=== PATIENT | male | born 2000 | race Caucasian/White ===

== ENCOUNTER 2019-06-02 17:34 | Emergency (ER) | payer BC ==
[~2019-06-02 17:34] MED LIST: Iopamidol-370 76% 500 ML 1 ML ONE
[2019-06-02 19:00] LABS: #Basophils 0.1 thou/uL (0.0-0.2); #Lymphocytes 3.3 thou/uL (1.20-3.40); #Monocytes 0.7 thou/uL (0.11-0.59); #Neutrophils 4.6 thou/uL (1.40-6.50); %Basophils 0.9 % (0.0-1.0); %Eosinophils 0.5 % (0.0-10.0); %Lymphocytes 38.1 % (28.0-48.0); %Monocytes 7.9 % (0.0-4.0); %Neutrophils 52.7 % (31.0-61.0); Hemoglobin 16.3 g/dL (14.0-18.0); Mean Corpuscular HGB CONC 34.6 g/dL (32.0-36.0); Mean Corpuscular Hemoglobin 30.7 pg (25.0-35.0); Mean Corpuscular Volume 88.9 fL (78.0-98.0); Mean Platelet Volume 7.5 fL (7.4-10.4); Platelet Count 246 thou/uL (130-400); RBC Distribution Width 11.7 % (11.5-14.5); Red Blood Cell (RBC) Count 5.29 mill/uL (4.00-5.20); White Blood Cell (WBC) Count 8.8 thou/uL (4.8-10.8)
[2019-06-02 19:31] LABS: ALT (SGPT) 16 U/L (8-55); AST (SGOT) 15 U/L (5-34); Albumin 4.9 g/dL (3.5-5.0); Alkaline Phosphatase 69 U/L (50-130); Anion Gap 16 mmol/L (10-20); BUN (Urea Nitrogen) 17 mg/dL (8.9-20.6); Bilirubin, Total 0.5 mg/dL (0.2-1.2); Calc. Creatinine Clearance 0 mL/min (70-130); Carbon Dioxide 24 mmol/L (22-29); Chloride 103 mmol/L (98-107); Estimated GFR-MDRD 89; Globulin 2.5 g/dL (2.4-3.5); Glucose 91 mg/dL (70-105); Protein, Total 7.4 g/dL (6.0-8.3); Sodium 139 mmol/L (136-145)
[2019-06-02] MEDS ORDERED: Morphine 4 MG/ML VIAL ONE (20:02)
[2019-06-02] MEDS ORDERED: Ondansetron PF 4 MG/2 ML Vial ONE (20:03)
--- NOTE | 2019-06-02 20:42 | CT ---
CT neck soft tissues with contrast: DATE: 06/02/2019 HISTORY: 19-year-old male with neck pain. Penetrating trauma. FINDINGS: Embedded within the left strap muscle, and abutting the left thyroid cartilage, there is a 7 x 3 x 5 mm metallic foreign body. There is a tiny amount of subcutaneous emphysema in the left strap muscle extending inferiorly along a vertical tract that is at least 5 cm in length. The trachea, thyroid gland, larynx, and cervical spine, are normal. The retropharyngeal, posterior ce rvical, perivertebral, parapharyngeal, carotid, parotid, submandibular, client support consultant, pharyngeal mucosal, and sublingual, spaces, are normal. No cervical lymphadenopathy. Incidental finding of metallic densities within superficial vein in the right neck represents pooling of injected contrast material, and should not be mistaken for additional foreign bodies. IMPRESSION: 1. Metallic foreign body in the left strap muscle just outside of the laryngeal skeleton. 2. Long thin vertical tract of gas within the left strap muscle extending inferiorly from that metall ic foreign body.
[2019-06-02] MEDS ORDERED: HYDROcodone/Acetaminophen 10/325 mg Tablet ONE (21:38)
== END 2019-06-02 22:15 | disposition home or self-care (01) ==
LOC: ERS 17:34
DX: S10.95XA Superficial foreign body of unspecified part of neck, initial encounter (principal); W26.9XXA Contact with unspecified sharp object(s), initial encounter
CPT/HCPCS: 70491; 80053; 85025; 96374; 96375; J2270; J2405; Q9967

== ENCOUNTER 2019-06-09 08:12 | Day surgery (SDC) | payer BC ==
[2019-06-08 08:49] VITALS: BMI 30.8
[2019-06-09] MEDS ORDERED: Fentanyl 100 MCG/2 ML VIAL ONE ×3 (08:53→12:41)
[2019-06-09] MEDS ORDERED: Midazolam HCl 2 mg/2 ml Vial ONE ×2 (08:53→09:45)
[2019-06-09] MEDS ORDERED: HYDROmorphone 0.5 MG/0.5 ML SYRINGE ONE (08:54)
[2019-06-09] MEDS ORDERED: Lidocaine 2% Jelly 5 ML TUBE ONE (08:54)
[2019-06-09] MEDS ORDERED: PROPOFOL 200 MG/20 ML VIAL ONE (09:40)
[2019-06-09] MEDS ORDERED: Rocuronium Bromide 10 MG/ML (10ML VIAL) ONE (09:40)
[2019-06-09] MEDS ORDERED: Ondansetron PF 4 MG/2 ML Vial ONE (09:40)
[2019-06-09] MEDS ORDERED: Lidocaine 1% PF 5 ML VIAL ONE (09:40)
[2019-06-09] MEDS ORDERED: Dexamethasone 20 MG/5 ML VIAL ONE (09:40)
[2019-06-09] MEDS ORDERED: Glycopyrrolate 0.2 MG/ML 5 ML SYRINGE ONE (09:40)
[2019-06-09] MEDS ORDERED: Bacitracin Zinc Ointment 30 gm TUBE ONE (09:43)
[2019-06-09] MEDS ORDERED: Lidocaine 1% w/Epinephrine 1:100K 20 ML VIAL ONE (09:43)
[2019-06-09] MEDS ORDERED: Sodium Chloride 0.9% 10 ML ONE (10:50)
[2019-06-09] MEDS ORDERED: Morphine 4 MG/ML VIAL ONE (12:10)
--- NOTE | 2019-06-10 14:57 | OP ---
DATE OF PROCEDURE: 06/09/2019 PREOPERATIVE DIAGNOSIS: Left neck foreign body with free-air around the foreign body. POSTOPERATIVE DIAGNOSIS: Left neck foreign body with free-air around the foreign body. PROCEDURE: Neck exploration and removal of foreign body, I and D and washout. PERMIT: The procedure, benefits, risks including those of bleeding, infection, injury to anesthesia, allergic reaction, damage to surrounding tissues or scarring necessitating revision repair and alternatives were reviewed with the patient and family who expressed understanding of the information. Consent form was signed and witnessed and a paper copy of the consent forms available for reviewing in the patient chart. INDICATION: This is a male patient who previously has a metal foreign body that was a projectile that imbedded in the neck to the left of the thyroid cartilage around the larynx with free-air and swelling and pain. Patient is brought to the operating room now for operative repair. ASSISTANTS: None. FINDINGS: Left mild inflammation as well as some inflammatory fluid around foreign body. A small foreign body roughly 0.5 cm x 0.5 cm next to the left thyroid cartilage. DESCRIPTION OF OPERATION: The patient was brought to the operating room, laid supine on the operating room table. General endotracheal anesthesia was administered. The bed was pulled down inferiorly and the wound where the projectile had entered the neck on the left was probed and no purulence was expressed. A natural neck crease was seen superior to the small 3 mm punctate puncture from the previous projectile foreign body, approximately 3 cm incision was made in the neck crease following the natural skin righted with a 15 blade scalpel. Next, the subcutaneous tissue was dissected with Bovie cautery down to the platysma which was divided and elevated superiorly and inferiorly. Next, the strap muscles were identified in the midline over the airway and the strap muscles were bilaterally. The sternohyoid was identified first and from the underlying sternothyroid. At this time, was used to retract the strap muscles and Weitlaner was placed to retract the skin upon and continued dissection was performed bluntly with a tonsil and DeBakey forceps until inflammatory fluid was found and the tissue around the foreign body. A small metallic foreign body was removed and placed on the Schaffer stand and in a specimen cup. After the foreign body was removed, the neck was explored around the area and no other foreign bodies were seen or other small areas. Next, the wound bed and area around the foreign body was irrigated with bacitracin infused saline. Copious irrigation was performed and the area was washed down. Next, the strap muscles were reapproximated with a 4-0 Vicryl stitch and then deep sutures were placed with 4-0 Vicryl and then a superficial running subcutaneous suture of 4-0 Prolene was used to close the skin, bacitracin, and a small simple wound dressing of Telfa over the bacitracin with tape was placed over the wound. The Valsalva was performed and there was no bleeding seen. The patient was turned back to Anesthesia for emergence and there were no complications. Job ID: [id number]
== END 2019-06-09 13:55 | disposition home or self-care (01) ==
LOC: SDC 08:12
PROVIDERS: ATTEND Student in an Organized Health Care Education/Training Program
PROC: 0KC30ZZ Extirpation of Matter from Left Neck Muscle, Open Approach (ICD-10-PCS; principal; 2019-06-09)
DX: S11.84XA Puncture wound with foreign body of other specified part of neck, initial encounter (principal); J34.2 Deviated nasal septum; Z79.2 Long term (current) use of antibiotics; Z79.899 Other long term (current) drug therapy; W45.8XXA Other foreign body or object entering through skin, initial encounter
CPT/HCPCS: J1100; J1170; J2001; J2250; J2270; J2405; J2704; J3010; J3490

== ENCOUNTER 2019-06-09 15:27 | Emergency (ER) | payer BC | END 2019-06-09 16:17 | disposition home or self-care (01) | LOC: ERS 15:27 | DX: R21 Rash and other nonspecific skin eruption (principal) | CPT/HCPCS: 99282 ==

== ENCOUNTER 2023-11-29 09:57 | Inpatient (IN) | payer SELFPAY ==
[2023-11-29 16:50] VITALS: BMI 31.6
[2023-11-29] MEDS ORDERED: Ondansetron PF 4 MG/2 ML Vial IVP PRN (17:08)
[2023-11-29] MEDS ORDERED: Senokot S 8.6-50 MG TAB PO PRN (17:14)
[2023-11-29] MEDS: Enoxaparin 40 MG (0.4 mL) SYRINGE SC SCH (20:12)
[2023-11-29] MEDS: Famotidine 20 MG TAB PO SCH (20:12)
[2023-11-29] MEDS: levETIRAcetam 500 MG TAB PO SCH (20:12)
[2023-11-29] MEDS: Acetaminophen 325 MG TAB PO PRN (23:16)
[2023-11-30 04:08] LABS: #Basophils 0.03 10x3/uL (0.0-0.2); %Basophils 0.4 % (0.0-1.0); %Eosinophils 1.5 % (0.0-10.0); %Monocytes 7.9 % (0.0-10.0); Hematocrit 41.9 % (42.0-52.0); Hemoglobin 14.1 g/dL (14.0-18.0); Mean Corpuscular HGB CONC 33.7 g/dL (32.0-36.0); Mean Corpuscular Hemoglobin 29.6 pg (27.0-31.0); Mean Platelet Volume 9.7 fL (7.4-10.4); Platelet Count 207 10x3/uL (130-400); RBC Distribution Width 12.1 % (11.5-14.5); Red Blood Cell (RBC) Count 4.76 mill/uL (4.70-6.10)
[2023-11-30 04:34] LABS: Anion Gap 12 mmol/L (10-20); BUN (Urea Nitrogen) 13 mg/dL (8.9-20.6); Calc. Creatinine Clearance 158 mL/min (70-130); Calcium 8.9 mg/dL (7.8-10.44); Carbon Dioxide 23 mmol/L (22-29); Chloride 108 mmol/L (98-107); Estimated GFR 105; Glucose 91 mg/dL (70-105); Sodium 139 mmol/L (136-145)
[2023-11-30] MEDS: Pantoprazole DR 40 MG TAB PO SCH (09:19)
[2023-11-30] MEDS: Fioricet 325/50/40 mg Tablet PO SCH (14:33)
[2023-11-30] MEDS: SUMAtriptan Succinate 50 MG TAB PO PRN (19:38)
[2023-12-01 04:46] LABS: #Basophils 0.03 10x3/uL (0.0-0.2); %Basophils 0.3 % (0.0-1.0); %Eosinophils 1.9 % (0.0-10.0); %Lymphocytes 40.4 % (21.0-51.0); %Monocytes 9.1 % (0.0-10.0); Hematocrit 43.7 % (42.0-52.0); Mean Corpuscular HGB CONC 34.3 g/dL (32.0-36.0); Mean Corpuscular Hemoglobin 30.2 pg (27.0-31.0); Mean Corpuscular Volume 88.1 fL (78.0-98.0); Mean Platelet Volume 9.8 fL (7.4-10.4); Platelet Count 228 10x3/uL (130-400); RBC Distribution Width 12.1 % (11.5-14.5); Red Blood Cell (RBC) Count 4.96 mill/uL (4.70-6.10)
[2023-12-01 06:00] LABS: Chloride 107 mmol/L (98-107); Potassium 3.8 mmol/L (3.5-5.1); Sodium 142 mmol/L (136-145)
[2023-12-01 06:01] LABS: Calcium 9.4 mg/dL (7.8-10.44)
[2023-12-01 06:02] LABS: Glucose 87 mg/dL (70-105)
[2023-12-01 06:03] LABS: Anion Gap 14 mmol/L (10-20); Carbon Dioxide 25 mmol/L (22-29)
[2023-12-01 06:05] LABS: Calc. Creatinine Clearance 155 mL/min (70-130); Estimated GFR 103
[2023-12-01 06:06] LABS: BUN (Urea Nitrogen) 15 mg/dL (8.9-20.6)
[2023-12-01] MEDS: Rosuvastatin 10 MG TAB PO SCH (20:31)
[2023-12-02 04:58] LABS: Anion Gap 13 mmol/L (10-20); BUN (Urea Nitrogen) 17 mg/dL (8.9-20.6); Calcium 9.4 mg/dL (7.8-10.44); Carbon Dioxide 25 mmol/L (22-29); Chloride 107 mmol/L (98-107); Glucose 144 mg/dL (70-105); Potassium 3.4 mmol/L (3.5-5.1); Sodium 142 mmol/L (136-145)
[2023-12-02 05:07] LABS: Calc. Creatinine Clearance 158 mL/min (70-130); Estimated GFR 105
[2023-12-02] MEDS: Ketorolac Tromethamine 30 MG (1 mL) VIAL IVP SCH ×2 (12:16→17:35)
[2023-12-02] MEDS: Prochlorperazine Edisylate 10 MG in Sodium Chloride 0.9% 50 ML IVPB SCH (12:19)
[2023-12-02] MEDS: Fioricet 325/50/40 mg Tablet PO SCH ×2 (13:57→17:36)
[2023-12-02] MEDS: Potassium Chloride 20 MEQ TAB PO SCH (17:36)
[2023-12-03 11:46] VITALS: BP 135/81; TEMP 98.1
== END 2023-12-03 18:18 | disposition home or self-care (01) | DRG 102 ==
LOC: 2SE 09:57
PROVIDERS: ADMIT Family Medicine; ATTEND Emergency Medicine
PROC: 4A00X4Z Measurement of Central Nervous Electrical Activity, External Approach (ICD-10-PCS; principal; 2023-11-30)
PROC: 4A00X4Z Measurement of Central Nervous Electrical Activity, External Approach (ICD-10-PCS; 2023-12-02)
DX: G43.809 Other migraine, not intractable, without status migrainosus (principal); G93.41 Metabolic encephalopathy; K21.9 Gastro-esophageal reflux disease without esophagitis; Z79.899 Other long term (current) drug therapy; G47.33 Obstructive sleep apnea (adult) (pediatric); R00.1 Bradycardia, unspecified; R07.89 Other chest pain; E78.00 Pure hypercholesterolemia, unspecified; Z88.8 Allergy status to other drugs, medicaments and biological substances; Z87.820 Personal history of traumatic brain injury
CPT/HCPCS: 36415; 80048; 85025; 93306; 95700; 95711; 95816; 95819; J0780; J1650; J1885